=== PATIENT | female | born 1995 | race Caucasian/White ===

== ENCOUNTER 2018-08-25 07:11 | Emergency (ER) | payer SELFPAY ==
[~2018-08-25] VITALS: Ht 162.6 cm; Wt 77.1 kg
[~2018-08-25 07:11] MED LIST: MIRT15TA; SERT50TA1; [UNRECOGNIZED DRUG - CODE] PO
[2018-08-25 07:30] VITALS: BP 116/78
[2018-08-25] MEDS ORDERED: LIDOCAINE VISCOUS 2% 20 ML UDC PO ONE (08:25)
[2018-08-25] MEDS ORDERED: DICYCLOMINE HCL LIQUID 10 MG/5 ML UDC PO ONE (08:25)
[2018-08-25] MEDS ORDERED: PANTOPRAZOLE 40 MG TABEC PO ONE (08:25)
[2018-08-25] MEDS ORDERED: ALUMINUM HYD/MAG/SIMETHICONE 30 ML UDC PO ONE (08:25)
[2018-08-25] MEDS ORDERED: ONDANSETRON 4 MG/2 ML VIAL IM ONE (08:25)
[2018-08-25 10:05] VITALS: BP 115/66
== END 2018-08-25 10:05 | disposition home or self-care (01) ==
LOC: MED 07:11
DX: K29.00 Acute gastritis without bleeding (principal); J45.909 Unspecified asthma, uncomplicated; Z79.899 Other long term (current) drug therapy
CPT/HCPCS: 81025; 96372; 99284; J2405

== ENCOUNTER 2018-08-31 15:05 | Emergency (ER) | payer SELFPAY ==
[~2018-08-31] VITALS: Ht 162.6 cm; Wt 77.1 kg
--- NOTE | 2018-08-31 15:08 | NUR ---
PT AMBULATES TO BED 8
[2018-08-31 15:11] VITALS: BP 121/75
--- NOTE | 2018-08-31 15:15 | NUR ---
PT IS A 22 Y/O FEMALE WHO PRESENTS TO THE ED C/O L SHOULDER PAIN. PT STATES THAT SHE WAS REACHING BEHIND HER BACK AND FELT A POP. PT REPORTS 7/10 ACHING L SHOULDER PAIN THAT DOES NOT RADIATE. CMS INTACT. NO OBVIOUS TRAUMA OR DEFORMITY NOTED. PT AWAKE AND ALERT, RR EVEN/UNLABORED. PT REPOSITIONED FOR COMFORT, BED IN LOWEST POSITION. ER MD DR. LANGFORD NOTIFIED. WILL CONTINUE TO MONITOR. HX---ANEMIA AND ASTHMA
[2018-08-31] MEDS ORDERED: KETOROLAC 60 MG/2 ML VIAL IM ONE (15:20)
[2018-08-31 15:22] VITALS: BP 121/75
== END 2018-08-31 15:22 | disposition home or self-care (01) ==
LOC: MED 15:05
DX: S43.402A Unspecified sprain of left shoulder joint, initial encounter (principal); J45.909 Unspecified asthma, uncomplicated; Z79.899 Other long term (current) drug therapy; X50.1XXA Overexertion from prolonged static or awkward postures, initial encounter; Y93.89 Activity, other specified; Y92.89 Other specified places as the place of occurrence of the external cause; Y99.8 Other external cause status
CPT/HCPCS: 96372; 99283; J1885

== ENCOUNTER 2019-08-19 08:26 | Emergency (ER) | payer OTHER ==
[~2019-08-19] VITALS: Ht 162.6 cm; Wt 72.1 kg
[2019-08-19 08:29] VITALS: BP 118/79
--- NOTE | 2019-08-19 08:29 | NUR ---
PATIENT AMBULATED TO BED 2.
--- NOTE | 2019-08-19 08:36 | NUR ---
23/F c/o missing menstrual cycle for the past 3 months. Pt states she has taken several urine tests at home that have all come out negative. Pt states she had serum done a few weeks ago which was also negative. Pt states she has normal menstrual cycles. Patient states she has hx of anemia and has had one blood transfusion in the past during her second . Pt denies any pain. Denies any vaginal discharge.
[2019-08-19 10:09] VITALS: BP 112/80
--- NOTE | 2019-08-19 10:09 | NUR ---
Patient discharged with v/s stable. Written and verbal after care instructions given and explained. Patient verbalized understanding. Ambulatory with steady gait. All questions addressed prior to discharge. Advised to follow up with PMD and an OBGYN.
== END 2019-08-19 10:09 | disposition home or self-care (01) ==
LOC: MED 08:26
DX: N91.2 Amenorrhea, unspecified (principal); D64.9 Anemia, unspecified; J45.909 Unspecified asthma, uncomplicated; Z90.49 Acquired absence of other specified parts of digestive tract
CPT/HCPCS: 81002; 81025; 99281; 99282; 99284

== ENCOUNTER 2019-08-26 08:03 | Emergency (ER) | payer OTHER ==
[~2019-08-26] VITALS: Ht 162.6 cm; Wt 72.1 kg
[2019-08-26 08:07] VITALS: BP 125/72
--- NOTE | 2019-08-26 08:09 | NUR ---
Patient ambulated to bed 6. RN evaluating patient at bedside.
--- NOTE | 2019-08-26 08:25 | NUR ---
Dr. Donis is evaluating the patient at bedside.
--- NOTE | 2019-08-26 08:36 | NUR ---
PATIENT PRESENTS TO ED WITH C/O SORE THROAT X6 DAYS. PT STATES PAIN @ 4/10 ON ADULT SCALE. DENIES N/V/D; SKIN IS PINK/WARM/DRY; AAOX4 WITH EVEN AND STEADY GAIT; LUNGS CLEAR BL; HR EVEN AND REGULAR; PT DENIES ANY FEVER, CP, SOB, OR COUGH AT THIS TIME; VSS; PATIENT POSITIONED FOR COMFORT; HOB ELEVATED; BEDRAILS UP X2; BED DOWN. ER MD SAW PT AT BEDSIDE.
[2019-08-26 08:53] VITALS: BP 125/72
--- NOTE | 2019-08-26 08:54 | NUR ---
Patient discharged with v/s stable. Written and verbal after care instructions given and explained. Patient alert, oriented and verbalized understanding of instructions. Ambulatory with steady gait. All questions addressed prior to discharge. ID band removed. Patient advised to follow up with PMD. Rx of PREDNISONE AND CLINDAMYCIN given. Patient educated on indication of medication including possible reaction and side effects. Opportunity to ask questions provided and answered.
== END 2019-08-26 08:54 | disposition home or self-care (01) ==
LOC: MED 08:03
DX: J03.90 Acute tonsillitis, unspecified (principal); J45.909 Unspecified asthma, uncomplicated; D64.9 Anemia, unspecified; Z90.49 Acquired absence of other specified parts of digestive tract
CPT/HCPCS: 99283; J7030

== ENCOUNTER 2019-10-27 16:02 | Emergency (ER) | payer OTHER ==
[~2019-10-27] VITALS: Ht 162.6 cm; Wt 71.7 kg
--- NOTE | 2019-10-27 16:33 | NUR ---
PT PLACED IN BED 6.
[2019-10-27 16:34] VITALS: BP 111/62
--- NOTE | 2019-10-27 16:44 | NUR ---
BIB SELF C/O INTOLERABLE MIGRAINE SINCE THIS MORNING. PT CLAIMS TO HAVE BEGAN GETTING MIGRAINES FOR ONE MONTH. HEADACHE BEGAN IN FRONTAL LOBE AND RADIATES THROUGHOUT ENTIRE HEAD. REPORTS NAUSEA AND DIARRHEA. DENIES ANY VOMITING/SOB/CHEST PAIN. REPORTS SHE IS HAVING SLIGHT BLURRINESS IN VISION. PEREDGAR, 3MM. PT HAS BEEN SELF MEDICATION WITH TYLENOL SINCE THIS MORNING. PMH: ANEMIA, HIGH CHOLESTEROL NKA
[2019-10-27] MEDS ORDERED: SUMAtriptan 6 MG/0.5 ML VIAL SUBQ ONE (16:50)
[2019-10-27] MEDS ORDERED: PROCHLORPERAZINE 10 MG/2 ML VIAL IVP ONE (18:00)
[2019-10-27] MEDS ORDERED: KETOROLAC 30 MG/ML VIAL IVP ONE (18:00)
[2019-10-27] MEDS ORDERED: diphenhydrAMINE 50 MG/ML VIAL IVP ONE (18:00)
[2019-10-27 19:12] VITALS: BP 121/73
--- NOTE | 2019-10-27 19:13 | NUR ---
Patient discharged with v/s stable. Written and verbal after care instructions given and explained. Patient verbalized understanding. Ambulatory with steady gait. All questions addressed prior to discharge. Advised to follow up with PMD.
== END 2019-10-27 19:13 | disposition home or self-care (01) ==
LOC: MED 16:02
DX: R51 Headache (principal); D64.9 Anemia, unspecified
CPT/HCPCS: 96372; 96374; 96375; 99283; J0780; J1200; J1885; J3030

== ENCOUNTER 2019-12-10 17:07 | Emergency (ER) | payer OTHER ==
[~2019-12-10] VITALS: Ht 162.6 cm; Wt 74.4 kg
[2019-12-10 17:22] VITALS: BP 115/68
--- NOTE | 2019-12-10 17:49 | NUR ---
PT AMBULATED TO ER BED 9
--- NOTE | 2019-12-10 18:08 | NUR ---
24 Y/O FEMALE PRESENTS TO THE ER WITH THROAT PAIN X 2 DAYS. C/O NAUSEA, DIARRHEA. DENIES VOMITING, COUGH, CONGESTION, NASAL DRAINAGE OR PRESSURE, FEVER, CONGESTION, OR ABDOMINAL PAIN. THROAT PAIN 03/17. CURRENTLY NOT TAKING ANY MEDS. WILL CONTINUE TO MONITOR, SIDERAIL X1 PMH: HTN, HYPERLIPIDEMIA NKDA
--- NOTE | 2019-12-10 18:38 | NUR ---
PA GOMEZ BEDSIDE EVALUATING PT
== END 2019-12-10 18:56 | disposition home or self-care (01) ==
LOC: MED 17:07
DX: J04.0 Acute laryngitis (principal); I10 Essential (primary) hypertension; E78.5 Hyperlipidemia, unspecified
CPT/HCPCS: 99282

== ENCOUNTER 2019-12-14 18:23 | Emergency (ER) | payer OTHER ==
[~2019-12-14] VITALS: Ht 162.6 cm; Wt 73.5 kg
[2019-12-14 18:39] VITALS: BP 111/72
--- NOTE | 2019-12-14 18:47 | NUR ---
PT AMB TO BED 8
--- NOTE | 2019-12-14 18:56 | NUR ---
24y/F came to er c/o nausea, throat pain diarrhea x 3 days. Pt. states taking Ibuprofen once x yesterday. Reports that she had previous dx of tonsilitis in october 2019. PmHx of asthma, tonsilitis, increased cholesterol. Pt. in bed laying down and resting, bed rails up x2, bed at lowest postion and locked.
--- NOTE | 2019-12-14 19:05 | NUR ---
Hand-off report given to Emanuel VOGEL
--- NOTE | 2019-12-14 19:09 | NUR ---
RECEIVED REPORT FROM JASPREET BAKER AND ASSUMED CARE.
--- NOTE | 2019-12-14 19:31 | NUR ---
DR CHUN AT BEDSIDE
--- NOTE | 2019-12-14 19:36 | NUR ---
Dr. Ayon examining patient.
[2019-12-14 20:01] VITALS: BP 111/72
--- NOTE | 2019-12-14 20:02 | NUR ---
Patient discharged with v/s stable. Written and verbal after care instructions given and explained. Patient alert, oriented and verbalized understanding of instructions. Ambulatory with steady gait. All questions addressed prior to discharge. ID band removed. Patient advised to follow up with PMD. Rx of AZITHROMYCIN, PREDNISONE AND MOTRIN given. Patient educated on indication of medication including possible reaction and side effects. Opportunity to ask questions provided and answered.
== END 2019-12-14 20:02 | disposition home or self-care (01) ==
LOC: MED 18:23
DX: J02.8 Acute pharyngitis due to other specified organisms (principal); B96.89 Other specified bacterial agents as the cause of diseases classified elsewhere; J45.909 Unspecified asthma, uncomplicated; I10 Essential (primary) hypertension
CPT/HCPCS: 99283

== ENCOUNTER 2019-12-26 07:25 | Emergency (ER) | payer OTHER ==
[~2019-12-26] VITALS: Ht 162.6 cm; Wt 73.5 kg
[2019-12-26 07:36] VITALS: BP 121/64
--- NOTE | 2019-12-26 07:50 | NUR ---
C/O COUGH & CONGESTION X 2 WEEKS. DENIES SOB. LUNG SOUNDS CAEBL. O2 SAT 98% RA. DENIES FEVER, N/V/D. BED IN LOW POSITION, SIDE RAIL UP X1
--- NOTE | 2019-12-26 08:25 | NUR ---
Dr. Ayon is evaluating the patient at bedside.
[2019-12-26 08:51] VITALS: BP 121/64
--- NOTE | 2019-12-26 08:51 | NUR ---
Patient discharged with v/s stable. Written and verbal after care instructions given and explained. Patient alert, oriented and verbalized understanding of instructions. Ambulatory with steady gait. All questions addressed prior to discharge. ID band removed. Patient advised to follow up with PMD. Rx of promethazine given. Patient educated on indication of medication including possible reaction and side effects. Opportunity to ask questions provided and answered.
== END 2019-12-26 08:51 | disposition home or self-care (01) ==
LOC: MED 07:25
DX: R05 Cough (principal); J45.909 Unspecified asthma, uncomplicated; I10 Essential (primary) hypertension
CPT/HCPCS: 99283

== ENCOUNTER 2020-03-06 17:29 | Emergency (ER) | payer OTHER ==
[~2020-03-06] VITALS: Ht 162.6 cm; Wt 72.6 kg
[2020-03-06 17:36] VITALS: BP 113/71
--- NOTE | 2020-03-06 17:51 | NUR ---
C/O GENERALIZED RASH X 3 WEEKS.PT AWAKE ,ALERT, RASHES ALL OVER THE BODY , MD CONSULT DONE MEDS TAKEN WITH NO RELIEF. MED HX; ASTHMA, ANEMIA , HIGH CHOLESTEROL
--- NOTE | 2020-03-06 18:05 | NUR ---
Patient discharged with v/s stable. Written and verbal after care instructions given and explained. Patient alert, oriented and verbalized understanding of instructions. Ambulatory with steady gait. All questions addressed prior to discharge. ID band removed. Patient advised to follow up with PMD. Rx of PREDNISONE & BENADRYL given. Patient educated on indication of medication including possible reaction and side effects. Opportunity to ask questions provided and answered.
[2020-03-06 18:06] VITALS: BP 113/71
== END 2020-03-06 18:05 | disposition home or self-care (01) ==
LOC: MED 17:29
DX: R21 Rash and other nonspecific skin eruption (principal); J45.909 Unspecified asthma, uncomplicated; I10 Essential (primary) hypertension; L42 Pityriasis rosea
CPT/HCPCS: 99283